=== PATIENT | female | born 1935 | race Caucasian/White ===

== ENCOUNTER 2018-08-01 09:14 | Emergency (ER) | payer MEDICARE, BC ==
--- NOTE | 2018-08-01 09:35 | EDM.PDOC ---
ED HPI GENERAL MEDICAL PROBLEM - General Chief Complaint: Upper Extremity Injury/Pain Stated Complaint: BACK PAIN Time Seen by Provider: 08/01/18 09:20 Source of Information: Reports: Patient, Old Records, RN, RN Notes Reviewed History Limitations: Reports: No Limitations - History of Present Illness INITIAL COMMENTS - FREE TEXT/NARRATIVE: Patient presents the emergency room at [facility] for the evaluation of upper back muscle spasms. The patient states her symptoms originally started last May and have progressively gotten worse. The patient was actually seen in the clinic on July 17, 2018 for similar complaint. At that visit the patient was complaining of shortness of breath and orthopnea as well as the upper back pain. The patient was worked up for a PE which was found to be negative. The patient states over the past couple of weeks the back spasms have gotten worse. The patient denies any injury or trauma but does state she slid out of her recliner about 4 days ago. The patient denies any numbness tingling or paresthesia of any extremity. The patient states the muscle spasms are in the lower cervical and upper thoracic area. The patient states the spasms are a gripping type pain. The patient does not have any disuse of any extremity. The patient has not tried any home modalities for her symptoms. Otherwise no other concerns today. Onset: Gradual Duration: Chronic Upper Back Pain Score (Numeric/FACES): 10 - Related Data Allergies Allergy/AdvReac Type Severity Reaction Status Date / Time lisinopril AdvReac Cough Verified 08/01/18 10:03 Home Meds: Home Meds Aspirin 81 mg PO DAILY 08/01/18 [History] Calcium Carb & Citrate/Vit D3 [Calcium + D3 ER Tablet] 1 each PO DAILY 08/01/18 [History] Krill/Om-3/DHA/EPA/Phospho/Ast [Prompton-3 Krill Oil 1,000 mg] 1 each PO DAILY [History] Losartan/Hydrochlorothiazide [Losartan-HCTZ 100-25 MG] 0.5 tab PO DAILY [History] Lutein 20 mg PO DAILY 08/01/18 [History] Multivitamin [Multivitamins] 2 each PO DAILY 08/01/18 [History] Resve/Chrom/Grn Tea/Egcg/Dig#3 [Resveratrol Diet] 2 each PO DAILY 08/01/18 [ History] Simvastatin 10 mg PO MOWEFR 08/01/18 [History] Ubidecarenone [Coenzyme Q10] 100 mg PO DAILY 08/01/18 [History] Vitamin E 400 unit PO DAILY 08/01/18 [History] amLODIPine Besylate [Amlodipine Besylate] 5 mg PO DAILY 08/01/18 [History] ED ROS GENERAL - Review of Systems Review Of Systems: See Below Constitutional: Denies: Fever, Chills Respiratory: Denies: Shortness of Breath, Cough Cardiovascular: Denies: Chest Pain, Palpitations Musculoskeletal: Reports: Back Pain Skin: Reports: No Symptoms Neurological: Reports: No Symptoms ED EXAM, UPPER BACK/NECK PAIN - Physical Exam Exam: See Below Exam Limited By: No Limitations General Appearance: Alert, No Apparent Distress Head Exam: Atraumatic, Normocephalic Neck Exam: Non-Tender, Full Range of Motion, Normal Alignment Nexus Criteria: No: Posterior, Midline Cervical Tenderness, Altered Level of Consciousness, Focal Neurological Deficit Cardiovascular/Respiratory: Regular Rate, Rhythm Back Exam: Normal Inspection, Muscle Spasm, Paraspinal Tenderness. No: Vertebral Tenderness Extremities: Normal Inspection Neurologic: Alert, Oriented x 3 Skin Exam: Normal Color, Warm/Dry Course - Vital Signs Last Recorded V/S: Last Vital Signs Temp 36.3 C 08/01/18 09:20 Pulse 100 08/01/18 09:20 Resp 16 08/01/18 09:20 BP 186/98 H 08/01/18 09:20 Pulse Ox 97 08/01/18 11:11 - Orders/Labs/Meds Orders: Active Orders 24 hr Category Date Time Status Sodium Chloride 0.9% [Saline Flush] Med 08/01/18 09:36 Active 10 ml FLUSH ASDIRECTED PRN fentaNYL [Sublimaze] Med 08/01/18 10:34 Active 50 mcg IVPUSH ASDIRECTED PRN Peripheral IV Insertion Adult [OM.PC] Routine Oth 08/01/18 09:36 Ordered Medication Orders Fentanyl (Sublimaze) 50 mcg IVPUSH ASDIRECTED PRN PRN Reason: Pain Last Admin: 08/01/18 10:41 Dose: 50 mcg Sodium Chloride (Saline Flush) 10 ml FLUSH ASDIRECTED PRN PRN Reason: Keep Vein Open Labs: Laboratory Tests 08/01/18 08/01/18 Range/Units 11:26 11:26 WBC 8.8 (4.0-10.0) x10^3/uL RBC 3.73 L (4.00-5.50) x10^6/uL Hgb 10.6 L (12.0-16.0) g/dL Hct 33.0 (33.0-47.0) % MCV 88.5 (78.0-93.0) fL MCH 28.4 (26.0-32.0) pg MCHC 32.1 (32.0-36.0) g/dL RDW Coeff of Rigoberto 12.5 (10.0-15.0) % Plt Count 225 (130-400) x10^3/uL Neut % (Auto) 79.8 (50.0-80.0) % Lymph % (Auto) 10.3 L (25.0-50.0) % Bates % (Auto) 9.2 (2.0-11.0) % Eos % (Auto) 0.5 (0.0-4.0) % Baso % (Auto) 0.2 (0.2-1.2) % Sodium 140 (136-145) mmol/L Potassium 3.6 (3.5-5.1) mmol/L Chloride 102 (98-107) mmol/L Carbon Dioxide 29 (21-32) mmol/L Anion Gap 12.6 (10-20) mmol/L BUN 17 (7-18) mg/dL Creatinine 1.1 H (0.55-1.02) mg/dL Est Cr Clr Drug Dosing 32.29 mL/min Estimated GFR (MDRD) 47 Glucose 124 H (74-106) mg/dL Calcium 9.3 (8.5-10.1) mg/dL Meds: Medications Generic Name Dose Route Start Last Admin Trade Name Freq PRN Reason Stop Dose Admin Fentanyl 50 mcg 08/01/18 10:34 08/01/18 10:41 Sublimaze IVPUSH 50 mcg ASDIRECTED PRN Administration Pain Sodium Chloride 10 ml 08/01/18 09:36 Saline Flush FLUSH ASDIRECTED PRN Keep Vein Open Discontinued Medications Generic Name Dose Route Start Last Admin Trade Name Freq PRN Reason Stop Dose Admin Diazepam 2.5 mg 08/01/18 09:36 08/01/18 09:42 Valium IVPUSH 08/01/18 09:37 2.5 mg STAT ONE Administration Diazepam 2.5 mg 08/01/18 10:35 08/01/18 10:44 Valium IVPUSH 08/01/18 10:36 2.5 mg STAT ONE Administration Morphine Sulfate 2 mg 08/01/18 09:36 08/01/18 09:40 Morphine IVPUSH 08/01/18 09:37 2 mg ONETIME ONE Administration - Radiology Interpretation Free Text/Narrative:: See scanned reports in EMR for details of CT results CT Results Date: 08/01/18 CT Results Time: 11:18 Departure - Departure Time of Disposition: 13:07 Disposition: DC/Tfer to Acute Hospital 02 Condition: Fair Clinical Impression: Closed T4 fracture Qualifiers: Encounter type: initial encounter Fracture morphology: unspecified fracture morphology Qualified Code(s): S22.049A - Unspecified fracture of fourth thoracic vertebra, initial encounter for closed fracture Closed T5 fracture Qualifiers: Encounter type: initial encounter Fracture morphology: unspecified fracture morphology Qualified Code(s): S22.059A - Unspecified fracture of T5-T6 vertebra , initial encounter for closed fracture Osteomyelitis Qualifiers: Osteomyelitis type: unspecified type Osteomyelitis location: unspecified site Qualified Code(s): M86.9 - Osteomyelitis, unspecified - Discharge Information *PRESCRIPTION DRUG MONITORING PROGRAM REVIEWED*: Not Applicable *COPY OF PRESCRIPTION DRUG MONITORING REPORT IN PATIENT STEVEN: Not Applicable Forms: Interfacility Transfer [facility] ED Communication - ED Communication Date/Time Date: 08/01/18 Time Called: 13:03 - Discussed Case With (1) Discussed Case With (1): Admitting Provider (Dr. Andujar, Neurosurgeon) - Conversation Summary Admitting Provider Agreed to Patient's Admission: Yes Patient Aware of Amendments fo Care Plan: Yes - Problem List Review Problem List Initiated/Reviewed/Updated: Yes - My Orders Last 24 Hours: My Active Orders 08/01/18 09:36 Sodium Chloride 0.9% [Saline Flush] 10 ml FLUSH ASDIRECTED PRN Peripheral IV Insertion Adult [OM.PC] Routine 08/01/18 10:34 fentaNYL [Sublimaze] 50 mcg IVPUSH ASDIRECTED PRN - Assessment/Plan Last 24 Hours: My Active Orders 08/01/18 09:36 Sodium Chloride 0.9% [Saline Flush] 10 ml FLUSH ASDIRECTED PRN Peripheral IV Insertion Adult [OM.PC] Routine 08/01/18 10:34 fentaNYL [Sublimaze] 50 mcg IVPUSH ASDIRECTED PRN Assessment:: T4-T5 discitis osteomyelitis T4 fracture T5 fracture Plan: Case discussed with Dr. Andujar, Neurosurgery. Patient will be transferred to [facility] for further assessment and stat MRI. Patient will be sent ALS ground. Patient and family agree with transfer and wish to proceed. NOTE: [place] one call was initially contact around 11:30am Long wait for return call from [place] Neurosurgeon.
[2018-08-01] MEDS ORDERED: Sodium Chloride 0.9% 10 ML Syringe FLUSH PRN (09:36)
[2018-08-01] MEDS ORDERED: diazePAM 5 MG/ML MDV IVPUSH ONE ×2 (09:36→10:35)
[2018-08-01] MEDS ORDERED: Morphine 2 MG/ML Syringe IVPUSH ONE (09:36)
[2018-08-01] MEDS ORDERED: fentaNYL 100 MCG/2 ML SDV IVPUSH PRN ×2 (10:34→13:16)
--- NOTE | 2018-08-01 11:04 | CT ---
[id number] CT/CT Cervical Spine WO IV EXAM: NONCONTRAST CERVICAL SPINE CT INDICATION: Pain, back spasms and fall at home. COMPARISON: None. DISCUSSION: The cervical vertebral bodies are normal in height and alignment without a fracture or suspicious osseous lesion identified. Mild to moderate degenerative disc disease C3-C4, C4-C5, C5-C6 and C6-C7. Mild to moderate facet degeneration throughout the cervical spine. The thyroid is diffusely enlarged with heterogeneous attenuation. Partially characterized right sphenoid sinus mucosal thickening. IMPRESSION: 1. No acute findings. 2. Moderate cervical spondylosis. Jc Zepeda MD 08/01/18 1103 Thank you for allowing us to participate in the care of your patient.
--- NOTE | 2018-08-01 11:22 | CT ---
[id number] CT/CT Thoracic Spine WO IV EXAM: NONCONTRAST THORACIC SPINE CT INDICATION: Pain, back spasm and fall at home. COMPARISON: None. DISCUSSION: At the T4-T5 level there is significant endplate destruction and significant infiltration of the surrounding soft tissues. Incompletely characterized epidural component with some of the fragments from the endplates projecting into the central canal. An MRI of the thoracic spine with and without contrast would be useful to further evaluate the spinal canal component and evaluate for cord compression. Inflammatory changes and erosions do involve the costovertebral joints at the T4 level. There are superimposed nondisplaced bilateral T4 facet fractures, a distracted right T5 pedicle fracture and posterior superior left T5 vertebral body fracture at the pedicle attachment. Both vertebral bodies have lost about 50% of the height and there is slight associated kyphosis. Mild to moderate degenerative disc disease and facet degeneration at the remaining thoracic levels. Results called at time of dictation. Incidental hiatus hernia. Small pleural effusions. Partial atelectasis of the left lower lobe. IMPRESSION: 1. T4-T5 discitis osteomyelitis with significant endplate destruction, 50% height loss of the vertebral bodies and significant surrounding inflammatory changes with resulting epidural collection or thickening and central canal stenosis. A thoracic spine MRI with and without contrast could provide further characterization of the degree of central canal narrowing. There are superimposed bilateral facet fractures at the T4 level and left pedicle and right posterior superior vertebral body fractures. Jc Zepeda MD 08/01/18 1121 Thank you for allowing us to participate in the care of your patient.
[2018-08-01 11:50] LABS: ANION GAP 12.6 mmol/L (10-20)
== END 2018-08-01 13:42 | disposition short-term general hospital (02) ==
LOC: VM.ED 09:14
DX: S22.049A Unspecified fracture of fourth thoracic vertebra, initial encounter for closed fracture (principal); S22.059A Unspecified fracture of T5-T6 vertebra, initial encounter for closed fracture; M86.9 Osteomyelitis, unspecified; Z88.8 Allergy status to other drugs, medicaments and biological substances; Z79.82 Long term (current) use of aspirin; Z79.899 Other long term (current) drug therapy; X58.XXXA Exposure to other specified factors, initial encounter
CPT/HCPCS: 36415; 72125; 72128; 80048; 85025; 96374; 96375; 96376; 99285; J2270; J3010; J3360